=== PATIENT | female | born 1985 | race Caucasian/White ===

== ENCOUNTER 2017-05-10 13:52 | Emergency (ER) | payer MEDICAID ==
[~2017-05-10] VITALS: Ht 162.6 cm; Wt 65.5 kg
[~2017-05-10 13:52] MED LIST: CALC-649; FERR27TA; PREN1TAB49
[2017-05-10 14:13] VITALS: Ht 162.6 cm; Wt 65.5 kg
[2017-05-10 15:20] LABS: URINE BLOOD (Dip) POC 2+ (NEGATIVE)
[2017-05-10] MEDS ORDERED: KETOROLAC 30 MG INJ IV STA (15:29)
[2017-05-10] MEDS ORDERED: SOD CHLORIDE 0.9% 1,000 ML IV STA (15:29)
[2017-05-10] MEDS ORDERED: CEFTRIAXONE 1 GM/50 ML (PMX) 50 ML IVPB STA (15:29)
[2017-05-10 16:09] LABS: BASOPHILS % 0.2 % (0.0-2.0); EOSINOPHILS % 0.1 % (0.0-7.0); HEMATOCRIT 36.9 % (37.0-47.0); LYMPHOCYTES # 1.6 10^3/ul (0.8-2.9); LYMPHOCYTES % 10.4 % (15.0-51.0); MEAN CORPUSCULAR HEMOGLOBIN 28.3 pg (29.0-33.0); MEAN CORPUSCULAR HGB CONC 32.5 g/dl (32.0-37.0); MEAN PLATELET VOLUME 10.5 fl (7.4-10.4); MONOCYTE # 0.7 10^3/ul (0.3-0.9); MONOCYTES % 4.4 % (0.0-11.0); NEUTROPHILS % 84.4 % (39.0-77.0); PLATELET COUNT 304 10^3/UL (140-415); RED BLOOD COUNT 4.24 10^6/ul (4.20-5.40); RED CELL DISTRIBUTION WIDTH 13.6 % (11.5-14.5); WHITE BLOOD COUNT 15.1 10^3/ul (4.8-10.8)
--- NOTE | 2017-05-10 16:19 | RADRPT ---
PROCEDURE: CT abdomen and pelvis without IV contrast. CLINICAL INDICATION: Abdominal pain TECHNIQUE: CT scan of the abdomen and pelvis without contrast was performed on the The [employer] volumetric [address] scanner. The patient was scanned without intravenous contrast. Coronal and sagittal refo rmatted images were obtained from the axial source images. The CTDI vol is 8.3 mGy and the DLP is 43 6.86 mGy-cm. One or more of the following dose reduction techniques were used: Automated exposure control. Adjustment of the mA and/or kV according to patient size. Use of iterative reconstruction technique. COMPARISON: None. FINDINGS: CT abdomen: A 4 mm nodule in the right lower lobe is seen. The remaining lung bases are clear. The heart size is not enlarged and is without pericardial thickening or effusion. The liver is normal in size and density and is without focal mass or intrahepatic biliary dilatation . The spleen is normal in size and homogeneous in density. The stomach is grossly unremarkable. T he pancreas as visualized is normal. The gallbladder is contracted. No common bile duct dilatation is seen. The adrenal glands are symmetric and normal. The kidneys are symmetrically unremarkable a s well. A 2 mm nonobstructing calculus is seen in the mid left kidney. No other renal calculus or ob structive uropathy or mass lesion is seen. The aorta is of normal in caliber. There is no retroperitoneal lymphadenopathy. The arturo hepatis region is clear. The large bowel is stool-filled. The small and large bowel and mesentery, as visua lized, are otherwise unremarkable. The normal appendix is identified. CT pelvis: The pelvic organs are normal. Prominent lymph nodes are seen on the right pelvic side chain with th e largest seen in the right common iliac region measuring 8 mm in maximal diameter. The remainder of the pelvic sidewalls and inguinal regions are clear. No pelvic mass, lymphadenopathy, or focal flu id collection is seen. A trace amount of free fluid is seen. No acute inflammation is seen. The ur inary bladder is within normal limits. The surrounding osseous structures are unremarkable. No osteolytic or osteoblastic lesion is detect ed. IMPRESSION: 1. No acute pathology in the abdomen and pelvis. 2. Trace amount of free fluid in the pelvis which may be physiologic in nature. 3. Prominent lymph nodes on the right pelvic side chain which may be reactive in nature. 4. Stool filled large bowel. 5. 2 mm nonobstructing left renal calculus. RPTAT: HPNM Mikie Hays, Physician Date Time Electronically viewed and signed by Mikie Hays, Physician on 05/10/2017 16:18 /
[2017-05-10] MEDS ORDERED: CEPH-443 PO (16:42)
[2017-05-10] MEDS ORDERED: DOCU-144 PO (16:42)
[2017-05-10] MEDS ORDERED: TRAM50TA2 PO (16:42)
[2017-05-10 16:45] LABS: ALBUMIN 4.1 g/dl (3.3-4.9); ALBUMIN/GLOBULIN RATIO 1.1; BILIRUBIN,INDIRECT 0.3 mg/dl (0-1.1); BILIRUBIN,TOTAL 0.3 mg/dl (0.2-1.3); CALCIUM 9.3 mg/dl (8.4-10.2); CREATININE 0.55 mg/dl (0.44-1.00); POTASSIUM 3.7 mmol/L (3.5-5.1); TOTAL PROTEIN 7.8 g/dl (6.1-8.1)
--- NOTE | 2017-05-10 16:49 | ERD ---
ER Documentation Chief Complaint Date/Time DATE: 05/10/17 TIME: 16:47 Chief Complaint LEFT SIDE AP SINCE THIS AM, DENIES N/V/D HPI This 32-year-old female complains of left lower quadrant abdominal pain since this morning. She has difficulty walking due to pain. She has dysuria as well. She denies any fevers, vomiting, constipation, blood. She has a history of kidney stones. She denies any right-sided abdominal pain. ROS All systems reviewed and are negative except as per history of present illness. Medications Home Meds Active Scripts Docusate Sodium* (Colace*) 100 Mg Capsule, 100 MG PO BID, #30 CAP Prov:HANNAH ABREU MD 05/10/17 Tramadol HCl (Tramadol HCl) 50 Mg Tablet, 50 MG PO Q4 Y for PAIN, #20 TAB Prov:HANNAH ABREU MD 05/10/17 Cephalexin* (Keflex*) 500 Mg Capsule, 500 MG PO QID for 10 Days, CAP Prov:HANNAH ABREU MD 05/10/17 Reported Medications Ferrous Sulfate (Iron) 1 Tab Tablet 08/04/10 Calcium Carbonate (Calcium) 1 Tab Tablet 08/04/10 Vits W-Ca,Fe,Fa(<1MG) () 1 Tab Tablet 08/04/10 Allergies Allergies: Coded Allergies: No Known Drug Allergy (Verified Allergy, Mild, 08/04/10) PMhx/Soc Medical and Surgical Hx: pt denies Medical Hx, pt denies Surgical Hx Hx Alcohol Use: No Hx Substance Use: No Hx Tobacco Use: No Physical Exam Vitals Vital Signs Date Time Temp Pulse Resp B/P Pulse Ox O2 Delivery O2 Flow Rate FiO2 05/10/17 14:13 99.5 82 20 114/58 100 Physical Exam Const: []Alert, [id number] per Head: Atraumatic Eyes: Normal Conjunctiva ENT: Normal External Ears, Nose and Mouth. Neck: Full range of motion..~ No meningismus. Resp: Clear to auscultation bilaterally Cardio: Regular rate and rhythm, no murmurs Abd: Soft, Tender in the left lower quadrant. No tenderness at McBurney's point no Ferguson sign. non distended. Normal bowel sounds Skin: No petechiae or rashes Back: No midline or flank tenderness Ext: No cyanosis, or edema Neur: Awake and alert Psych: Normal Mood and Affect Result Diagram: 05/10/17 1600 Results 24 hrs Laboratory Tests Test 05/10/17 15:26 05/10/17 16:00 Bedside Urine pH (LAB) 5.0 Bedside Urine Protein (LAB) 2+ Bedside Urine Glucose (UA) 0.1% Bedside Urine Ketones (LAB) Negative Bedside Urine Blood 2+ Bedside Urine Nitrite (LAB) Positive Bedside Urine Leukocyte Esterase (L 3+ White Blood Count 15.110^3/ul Red Blood Count 4.2410^6/ul Hemoglobin 12.0g/dl Hematocrit 36.9% Mean Corpuscular Volume 87.0fl Mean Corpuscular Hemoglobin 28.3pg Mean Corpuscular Hemoglobin Concent 32.5g/dl Red Cell Distribution Width 13.6% Platelet Count 72838^3/UL Mean Platelet Volume 10.5fl Neutrophils % 84.4% Lymphocytes % 10.4% Monocytes % 4.4% Eosinophils % 0.1% Basophils % 0.2% Nucleated Red Blood Cells % 0.0/100WBC Neutrophils # (Manual) 12.710^3/ul Lymphocytes # 1.610^3/ul Monocytes # 0.710^3/ul Eosinophils # 0.010^3/ul Basophils # 0.010^3/ul Nucleated Red Blood Cells # 0.010^3/ul Current Medications Medications (Trade) Dose Ordered Sig/Donald Route PRN Reason Start Time Stop Time Status Last Admin Dose Admin Sodium Chloride (NS) 1,000 ml @ 1,000 mls/hr Q1H STAT IV 05/10/17 15:29 05/10/17 16:28 DC 05/10/17 16:02 Ketorolac Tromethamine 30 mg 30 mg ONCE STAT IV 05/10/17 15:29 05/10/17 15:33 DC 05/10/17 16:01 Ceftriaxone Sodium (Rocephin) 50 ml @ 100 mls/hr ONCE STAT IVPB 05/10/17 15:29 05/10/17 15:58 DC 05/10/17 16:18 Procedures/MDM Urine shows positive signs of infection. WBC is 15. Hemoglobin normal. CMP shows no acute abnormalities. Patient was given 1 L normal saline IV, Toradol 30 mg IV and Rocephin 1 g IV for abdominal pain and signs of UTI. CT abdomen pelvis noncontrast shows undescended small left renal stone constipation without additional acute abnormalities. Patient felt better after observation treatment. Patient and his upper quadrant pain of uncertain etiology signs of UTI and constipation on studies today. She will be treated with Cipro and tramadol and instructions for clear fluids at home. The patient was stable with no new complaints during the ER course. Clinically, there is no current evidence to suggest meningitis, sepsis, acute abdomen, pneumonia, acute coronary syndrome, pulmonary embolism, or any other emergent condition appearing to require further evaluation or hospitalization. The patient should certainly return for any new or worsening symptoms per the aftercare instructions. They should otherwise follow-up with her primary care doctor for reevaluation this week. Departure Diagnosis: Primary Impression: UTI (urinary tract infection) Urinary tract infection type: acute cystitis Hematuria presence: without hematuria Qualified Code: N30.00 - Acute cystitis without hematuria Additional Impression: Abdominal pain Abdominal location: left lower quadrant Qualified Code: R10.32 - Left lower quadrant pain Condition: Stable Patient Instructions: Abdominal Pain, Understanding Urinary Tract Infections ( UTIs) Additional Instructions: Examinations today show infection as well as constipation and we will treat for both. Drink plenty of fluids at home. Recheck for fevers, vomiting, worsening pain, new or worsening symptoms or primary care doctor. HANNAH ABREU MD May 10, 2017 16:49
[2017-05-10 17:24] VITALS: BP 107/64; PULSE 83; RESP 16; TEMP 98.7
== END 2017-05-10 18:05 | disposition home or self-care (01) ==
LOC: FTE 13:52
DX: N30.00 Acute cystitis without hematuria (principal)
CPT/HCPCS: 36415; 74176; 80053; 81003; 83690; 85025; 87086; 96365; 96375; J0696; J1885; J7030; Z7502